=== PATIENT | female | born 1995 | race Caucasian/White ===

== ENCOUNTER 2017-11-11 11:52 | Inpatient (IN) | payer OTHER ==
[2017-11-11] MEDS ORDERED: ACETAMINOPHEN 325 MG TAB PO (13:00)
[2017-11-11] MEDS ORDERED: NACL 0.9% 3 ML SYG IV (13:00)
[2017-11-11] MEDS ORDERED: ONDANSETRON 4 MG TAB PO (13:00)
[2017-11-11] MEDS ORDERED: ONDANSETRON 4 MG INJ IV (13:00)
[2017-11-11] MEDS: morphine 2 MG INJ IV ×3 (13:06→22:09)
[2017-11-11] MEDS: ENOXAPARIN 40 MG/0.4 ML SYG SC (13:07)
[2017-11-11] MEDS: KETOROLAC 30 MG INJ IV (14:45)
[2017-11-11] MEDS: CEFTRIAXONE 1 GM/50 ML (PMX) 50 ML IVPB (14:45)
[2017-11-11] MEDS: HYDROCODONE/APAP (5/325) TAB PO (23:20)
[2017-11-12] MEDS: morphine 2 MG INJ IV ×2 (06:10→14:03)
[2017-11-12 06:25] LABS: ADD MAN DIFF? NO
[2017-11-12 06:27] LABS: WHITE BLOOD COUNT 9.6 10^3/ul (4.8-10.8)
[2017-11-12 06:27] LABS: BASOPHIL # 0.1 10^3/ul (0.0-0.1); BASOPHILS % 0.5 % (0.0-2.0); EOSINOPHILS # 0.2 10^3/ul (0.0-0.5); EOSINOPHILS % 1.6 % (0.0-7.0); HEMATOCRIT 37.8 % (37.0-47.0); HEMOGLOBIN 12.8 g/dl (12.0-16.0); LYMPHOCYTES # 3.5 10^3/ul (0.8-2.9); LYMPHOCYTES % 36.4 % (15.0-51.0); MEAN CORPUSCULAR HEMOGLOBIN 27.7 pg (29.0-33.0); MEAN CORPUSCULAR HGB CONC 33.9 g/dl (32.0-37.0); MEAN CORPUSCULAR VOLUME 81.8 fl (82.0-101.0); MEAN PLATELET VOLUME 11.2 fl (7.4-10.4); MONOCYTE # 0.7 10^3/ul (0.3-0.9); MONOCYTES % 7.5 % (0.0-11.0); NEUTROPHIL # 5.2 10^3/ul (1.6-7.5); NEUTROPHILS % 53.7 % (39.0-77.0); PLATELET COUNT 260 10^3/UL (140-415); RED BLOOD COUNT 4.62 10^6/ul (4.20-5.40); RED CELL DISTRIBUTION WIDTH 12.9 % (11.5-14.5)
[2017-11-12 07:03] LABS: ALANINE AMINOTRANSFERASE 23 IU/L (13-69); ALBUMIN 3.7 g/dl (3.3-4.9); ALBUMIN/GLOBULIN RATIO 1.15; ALKALINE PHOSPHATASE 78 IU/L (42-121); ANION GAP 15 (8-16); ASPARTATE AMINO TRANSFERASE 14 IU/L (15-46); BILIRUBIN,INDIRECT 0.3 mg/dl (0-1.1); BILIRUBIN,TOTAL 0.3 mg/dl (0.2-1.3); BLOOD UREA NITROGEN 14 mg/dl (7-20); CALCIUM 8.8 mg/dl (8.4-10.2); CARBON DIOXIDE 28 mmol/L (21-31); CHLORIDE 106 mmol/L (97-110); CREATININE 0.72 mg/dl (0.44-1.00); GLUCOSE 90 mg/dl (70-220); MAGNESIUM 1.8 mg/dl (1.7-2.5); PHOSPHORUS 4.8 mg/dl (2.5-4.9); POTASSIUM 4.7 mmol/L (3.5-5.1); SODIUM 144 mmol/L (135-144); TOTAL PROTEIN 6.9 g/dl (6.1-8.1)
[2017-11-12] MEDS: ENOXAPARIN 40 MG/0.4 ML SYG SC (08:51)
[2017-11-12] MEDS: CEFTRIAXONE 1 GM/50 ML (PMX) 50 ML IVPB (13:53)
[2017-11-12] MEDS ORDERED: MIDAZOLAM 1 MG/ML 2 ML INJ (20:22)
[2017-11-12] MEDS: BUPIVACAINE 0.25% (MPF) 30 ML INJ (21:05)
[2017-11-12] MEDS: LIDOCAINE 1%/EPI 30 ML INJ (21:05)
[2017-11-12] MEDS ORDERED: ONDANSETRON 4 MG INJ (21:40)
[2017-11-12] MEDS ORDERED: KETOROLAC 30 MG INJ (21:44)
[2017-11-12] MEDS ORDERED: NEOSTIGMINE 3 MG/3 ML SYRINGE (21:50)
[2017-11-12] MEDS ORDERED: ROCURONIUM 50 MG INJ (21:50)
[2017-11-12] MEDS ORDERED: GLYCOPYRROLATE 0.4 MG INJ (21:50)
[2017-11-12] MEDS ORDERED: PROPOFOL 20 ML (21:50)
[2017-11-12] MEDS ORDERED: LIDOCAINE 2% (SDV) 5 ML INJ (21:50)
[2017-11-12] MEDS ORDERED: CEFAZOLIN 1 GM INJ (21:51)
[2017-11-12] MEDS ORDERED: FENTAnyl 50 MCG/ML VIAL IV (22:30)
[2017-11-12] MEDS ORDERED: KETOROLAC 30 MG INJ IV (22:30)
[2017-11-12] MEDS ORDERED: DIPHENHYDRAMINE 50 MG INJ IV (22:30)
[2017-11-12] MEDS ORDERED: HYDROmorphONE (0.2 MG/ML) 10ML SYG IV (22:30)
[2017-11-12] MEDS ORDERED: METOCLOPRAMIDE 10 MG INJ IV (22:30)
[2017-11-12] MEDS ORDERED: MEPERIDINE 25 MG INJ IV (22:30)
[2017-11-12] MEDS: ONDANSETRON 4 MG INJ IV (22:56)
[2017-11-12] MEDS: HYDROmorphONE (0.2 MG/ML) 10ML SYG IV (22:57)
[2017-11-13] MEDS: morphine 2 MG INJ IV (03:06)
[2017-11-13 06:03] LABS: ADD MAN DIFF? NO
[2017-11-13 06:06] LABS: BASOPHILS % 0.2 % (0.0-2.0); HEMATOCRIT 37.2 % (37.0-47.0); HEMOGLOBIN 12.5 g/dl (12.0-16.0); LYMPHOCYTES # 1.7 10^3/ul (0.8-2.9); LYMPHOCYTES % 15.9 % (15.0-51.0); MEAN CORPUSCULAR HEMOGLOBIN 27.4 pg (29.0-33.0); MEAN CORPUSCULAR HGB CONC 33.6 g/dl (32.0-37.0); MEAN CORPUSCULAR VOLUME 81.6 fl (82.0-101.0); MEAN PLATELET VOLUME 11.4 fl (7.4-10.4); MONOCYTE # 0.4 10^3/ul (0.3-0.9); MONOCYTES % 3.9 % (0.0-11.0); NEUTROPHIL # 8.4 10^3/ul (1.6-7.5); NEUTROPHILS % 79.7 % (39.0-77.0); PLATELET COUNT 293 10^3/UL (140-415); RED BLOOD COUNT 4.56 10^6/ul (4.20-5.40)
[2017-11-13 06:06] LABS: WHITE BLOOD COUNT 10.6 10^3/ul (4.8-10.8)
[2017-11-13 06:20] LABS: ANION GAP 16 (8-16); BLOOD UREA NITROGEN 10 mg/dl (7-20); CALCIUM 8.6 mg/dl (8.4-10.2); CARBON DIOXIDE 26 mmol/L (21-31); CHLORIDE 104 mmol/L (97-110); CREATININE 0.66 mg/dl (0.44-1.00); GLUCOSE 91 mg/dl (70-220); MAGNESIUM 1.7 mg/dl (1.7-2.5); PHOSPHORUS 4.5 mg/dl (2.5-4.9); POTASSIUM 4.1 mmol/L (3.5-5.1); SODIUM 142 mmol/L (135-144)
[2017-11-13] MEDS: HYDROCODONE/APAP (5/325) TAB PO (07:55)
[2017-11-13] MEDS: ENOXAPARIN 40 MG/0.4 ML SYG SC (07:55)
[2017-11-13] MEDS ORDERED: morphine LIQ (10 MG/5 ML) CUP PO (15:00)
== END 2017-11-13 13:30 | disposition home or self-care (01) | DRG 419 ==
LOC: PP2 11:52
PROVIDERS: Internal Medicine
PROC: 0FT44ZZ Resection of Gallbladder, Percutaneous Endoscopic Approach (ICD-10-PCS; principal; 2017-11-12 19:30)
DX: K80.00 Calculus of gallbladder with acute cholecystitis without obstruction (principal); E66.01 Morbid (severe) obesity due to excess calories; Z68.38 Body mass index [BMI] 38.0-38.9, adult
CPT/HCPCS: 80048; 80053; 83735; 84100; 84703; 85025; 88304